=== PATIENT | male | born 1955 | race Caucasian/White ===

== ENCOUNTER 2024-09-10 11:29 | Emergency (ER) | payer MEDICARE, SELFPAY ==
--- NOTE | 2024-09-10 11:40 | EKG_ITS ---
[address] [address] Test Date: 2024-09-10 Pat Name: Jeevan Mccloud Department: Room: Gender: Male Studio Artist: SIGIFREDO : 1955 Requested By: Order Number: [id number] Reading MD: Sorin Morel MD Measurements Intervals [place] Rate: 61 P: MS: QRS: -80 QRSD: 172 T: 21 QT: 442 QTc: 444 Interpretive Statements Wide QRS rhythm Left axis deviation Right bundle branch block Inferior infarct , age undetermined NO PRIOR TRACING Electronically Signed On 09-11-2024 7:28:18 PST by Sorin Morel MD
--- NOTE | 2024-09-10 11:41 | ED.CPR ---
HPI - CPR General Chief Complaint: Cardiac Arrest/CPR Stated Complaint: Code Blue Time Seen by Provider: 09/10/24 11:39 Source: patient, EMS, RN notes reviewed and old records reviewed Mode of arrival: EMS Limitations: no limitations History of Present Illness HPI narrative: 69-year-old male history of diabetes hypertension, dyslipidemia recently diagnosed with pneumonia had called by EMS for shortness of breath. Patient was found to be in AFib RVR, O2 sats were 89-90%. Patient cardioverted without any intervention and then had EKG in the 60s sinus rhythm but concern for ST elevated [place] EMS was transporting to [facility] when patient Paul down and lost pulses. Patient was alert initially elevation but had worsening mentation. No reported allergies. Patient heart rate reportedly 120s in the field. Had 2 1 mg epinephrine EN route with found initially be VFib, then PEA slow rate. Had a proximally 20 minutes of down time with CPR prior to arrival. Med list was provided by EMS shows patient is on atorvastatin, diclofenac, folic acid, vitamin D3, glipizide/metformin, dutasteride, tamsulosin, propafenone, metoprolol, B12, glucosamine, Ozempic. Related Data Home Medications Medication Instructions Recorded Confirmed atorvastatin 10 mg tablet 10 mg PO BEDTIME 09/10/24 09/10/24 dutasteride 0.5 mg capsule 0.5 mg PO DAILY 09/10/24 09/10/24 folic acid 1 mg tablet 1 mg PO DAILY 09/10/24 09/10/24 glipizide 5 mg-metformin 500 mg 1 tab PO BID 09/10/24 09/10/24 tablet glucosamine sulfate 500 mg tablet 500 mg PO DAILY 09/10/24 09/10/24 (Glucosamine) metoprolol tartrate 100 mg tablet 100 mg PO BID 09/10/24 09/10/24 propafenone 150 mg tablet 150 mg PO Q8H 09/10/24 09/10/24 tamsulosin 0.4 mg capsule 0.8 mg PO BEDTIME 09/10/24 09/10/24 Allergies Allergy/AdvReac Type Severity Reaction Status Date / Time No Known Drug Allergies Allergy Verified 09/10/24 12:51 Review of Systems Review of Systems ROS Unobtainable: All systems reviewed & are unremarkable except as noted in HPI and below Patient History Medical History (Updated 09/10/24 @ 12:41 by Yanira Lozano, FREDO) Enlarged prostate High cholesterol Diabetes Hypertension Social History Smoking Status: Unknown if ever smoked Exam Narrative Exam Narrative: GENERAL: Unconscious male in severe distress. CPR is in progress HEENT: Head normocephalic, atraumatic, EOMI, pupils reactive, face symmetric, moist mucous membranes NECK: Supple, full range of motion CARDIOVASCULAR: CPR in progress RESPIRATORY: Breath sounds equal bilaterally with BVM ABDOMEN: Soft, nontender. Normoactive bowel sounds all 4 quadrants. No guarding or rebound, rigidity, no mass : No CVA tenderness EXTREMITIES: Normal range of motion, no clubbing, edema bilateral lower extremities.. Neurovascularly intact NEUROLOGICAL: Cranial nerves II through XII grossly intact. Moving all extremities SKIN: Warm, dry, no petechiae, no rashes or lesions. Course Orders Ordered: ED Orders 09/10/24 11:40 EKG-12 Lead Stat 09/10/24 11:53 Complete Blood Count AUTO DIFF Stat Comprehensive Metabolic Panel Stat Lipase Stat NT-proBNP (BNP-Adult 18+) Stat Procalcitonin Stat Troponin & CK Cardiac Panel Stat MDM - Cardiac Arrest/CPR Lab Data 09/10/24 11:53 09/10/24 11:53 Labs: Lab Results 09/10/24 Range/Units 11:53 WBC 15.0 H (4.5-11.0) X10^3/uL RBC 4.53 (4.5-5.9) X10^6/uL Hgb 12.8 L (13.5-17.5) g/dL Hct 43.4 (41-53) % MCV 95.7 (80-100) fL MCH 28.2 (26-34) PG MCHC 29.5 L (30-36) % RDW 16.4 H (11.6-14.8) % Plt Count 81 L (150-400) X10^3/uL Neut % (Auto) 59.3 (50-75) % Lymph % (Auto) 30.1 (25-40) % [place] % (Auto) 7.7 (3-14) % Eos % (Auto) 2.1 (2-4) % Baso % (Auto) 0.8 (0-2) % Neut # (Auto) 8900 H (7420-1920) /uL Lymph # (Auto) 4500 (8920-0301) /uL [place] # (Auto) 1100 H (0-900) /uL Eos # (Auto) 300 (0-450) /uL Baso # (Auto) 100 (0-100) /uL Sodium 136 L (137-145) mmol/L Potassium 4.9 (3.4-5.1) mmol/L Chloride 101 (98-107) mmol/L Carbon Dioxide 9 L* (22-32) mmol/L BUN 9 (9-20) mg/dL Creatinine 1.38 H (0.66-1.25) mg/dL Estimated GFR 55 L (>60) mL/min BUN/Creatinine Ratio 6.5 (6-22) Glucose 452 H (80-110) mg/dL Calcium 8.9 (8.4-10.2) mg/dL Total Bilirubin 0.8 (0.2-1.3) mg/dL AST 75 H (17-59) IU/L ALT 41 (<50) IU/L Alkaline Phosphatase 75 (38-126) U/L Total Creatine Kinase 123 (55-170) U/L Troponin I 0.178 H* (0.01-0.034) ng/mL NT-Pro-B Natriuret Pep 101 (<125) pg/mL Total Protein 7.0 (6.3-8.2) g/dL Albumin 3.7 (3.5-5.0) g/dL Globulin 3.3 (1.7-4.1) g/dL Albumin/Globulin Ratio 1.1 (1.0-2.8) Lipase 205 (23-300) U/L Procalcitonin 0.170 (<0.5) ng/mL ECG Data Attestation: I personally reviewed and interpreted this ECG as follows: Prior ECG tracings: available for review Interpretation: Wide QRS rhythm left axis deviation right bundle-branch block appears to have ST elevation during AVF as well as V1 V2 V3. Patient has depression 1 aVL. Patient has prior from 02/03/2024 that shows sinus rhythm. MDM Narrative Medical decision making narrative: 69-year-old male unable to obtain history other than [employer] med list patient had reported recent pneumonia, was AFib RVR for EMS sort of cardioverted to sinus rhythm in the 60s and then lost consciousness and Paul down. EMS reported that they had sounds like some dental VFib but was pa patient received epi x2 EN route with EMS. Here patient was out pulses initially had ET tube placed by Anesthesiology with good placement good breath sounds. Patient continued to be pulseless and had repeat epinephrine x4 and then placed on epi drip. Patient had 20 minutes reported downtime with CPR en route. Patient had ROSC for a brief period of time lost pulses again. Continued with epi drip did receive a dose of atropine. Initial rate with [place] appeared to be AFib RVR patient has ST elevation suspect STEMI with depression in lateral leads on EMS EKG and also appears to have ST elevation with depression in 1 and aVL repeat EKG prior to loss of pulses. Patient had additional CPR. Patient had excellent end-tidal CO2 with CPR, tidal would drop almost immediately when stopped. Point of care glucose was in the 400s. Labs were obtained but pending. Pulses were unable to be obtained and repeat checks was in PA with no cardiac squeeze or motion on bedside ultrasound. NARCISO was called at 1200. Patient's family was expecting patient to go to [facility]. Did call the [facility] to update to redirect patient here. You do not have any contact information for the patient or their family. Nursing contacted carpenter repairer and organ donation service. Patient's records from [facility] appears he had a chest x-ray was found to have multifocal pneumonia on chest x-ray on 09/09/2024 discharged home on Augmentin and azithromycin also had a refill for glipizide/metformin and Ozempic. Family states he had not established with a primary care yet. Critical Care Time Critical Care Time Critical Care Time: Yes Total Critical Care Time: 20 Attestation: The high probability of a clinically significant, sudden or life threatening deterioration of the cardiac and pulmonary system(s) required my full and direct attention, intervention and personal management. The aggregate critical care time was [--] minutes. This time is in addition to time spent performing reported procedures but includes the following: [x] Data Review and interpretation [x] Patient assessment and monitoring of vital signs [x] Documentation [x] Medication orders and management Discharge Plan Departure Patient Disposition: Clinical Impression: Cardiac arrest Date/Time: 09/10/24 12:00
[2024-09-10 12:12] LABS: Add Manual Diff / Slide Review NO; Basophils Absolute Auto 100 /uL (0-100); Basophils Percent Auto 0.8 % (0-2); Eosinophils Absolute Auto 300 /uL (0-450); Eosinophils Percent Auto 2.1 % (2-4); Hematocrit 43.4 % (41-53); Hemoglobin 12.8 g/dL (13.5-17.5); Lymphocytes Absolute Auto 4500 /uL (1100-4500); Lymphocytes Percent Auto 30.1 % (25-40); Mean Corpuscular HGB Conc 29.5 % (30-36); Mean Corpuscular Hemoglobin 28.2 PG (26-34); Mean Corpuscular Volume 95.7 fL (80-100); Monocytes Absolute Auto 1100 /uL (0-900); Monocytes Percent Auto 7.7 % (3-14); Neutrophils Absolute Auto 8900 /uL (1500-7000); Neutrophils Percent Auto 59.3 % (50-75); Platelet Count 81 X10^3/uL (150-400); Red Blood Cell Count 4.53 X10^6/uL (4.5-5.9); Red Cell Distribution Width 16.4 % (11.6-14.8)
[2024-09-10 12:18] LABS: Alanine Aminotransferase 41 IU/L (<50); Albumin 3.7 g/dL (3.5-5.0); Albumin Globulin Ratio 1.1 (1.0-2.8); Alkaline Phosphatase 75 U/L (38-126); Aspartate Aminotransferase 75 IU/L (17-59); BUN Creatinine Ratio 6.5 (6-22); Bilirubin Total 0.8 mg/dL (0.2-1.3); Blood Urea Nitrogen 9 mg/dL (9-20); Calcium 8.9 mg/dL (8.4-10.2); Chloride 101 mmol/L (98-107); Creatine Kinase 123 U/L (55-170); Estimated Glomerular Filt Rate 55 mL/min (>60); Globulin 3.3 g/dL (1.7-4.1); Glucose 452 mg/dL (80-110); Potassium 4.9 mmol/L (3.4-5.1); Sodium 136 mmol/L (137-145)
--- NOTE | 2024-09-10 12:24 | PM.PROC.1 ---
Procedures Date/Time Date of procedure: 09/10/24 Time of procedure: 11:30 Intubation Time out performed: No (CPR in progress) Sedative: none Laryngoscope: fiber optic video scope ET tube size: 8 ET tube uncuffed: No Tube secured depth (cm): 24 Tube secured location: teeth Tube placement confirmation: visualized tube passing through cords, equal breath sounds bilaterally, no breath sounds over epigastrium and confirmation by capnometry Intubation complications: none
[2024-09-10 12:25] LABS: Lipase 205 U/L (23-300)
[2024-09-10 12:30] LABS: HEMOLYSIS 77 (0-50); NT-proBNP (BNP-Adult 18+) 101 pg/mL (<125)
[2024-09-10 12:31] LABS: Carbon Dioxide 9 mmol/L (22-32); Troponin I 0.178 ng/mL (0.01-0.034)
--- NOTE | 2024-09-10 13:04 | PC.NURSE ---
removed ETT after senior applications analyst declined.
--- NOTE | 2024-09-10 17:32 | PC.NURSE ---
[facility]. Pt handed off to Aaron Quevedo w/ [facility].
== END 2024-09-10 17:33 | disposition expired ==
PROVIDERS: Emergency Provider Emergency Medicine; PCP Student in an Organized Health Care Education/Training Program
DX: I46.9 Cardiac arrest, cause unspecified (principal); E11.9 Type 2 diabetes mellitus without complications; E78.5 Hyperlipidemia, unspecified; I10 Essential (primary) hypertension
CPT/HCPCS: 80053; 82550; 83690; 83880; 84145; 84484; 85025; 92950; 93005; 93010; 94799; 99282; 99285; J0171; J0461